=== PATIENT | female | born 1970 | race African-American/Black ===

== ENCOUNTER 2020-07-12 21:07 | Inpatient (IN) | payer BC ==
[2020-07-12] MEDS ORDERED: Dextrose 50% Abboject 50 ML SYRINGE SLOW IVP PRN (23:03)
[2020-07-12] MEDS ORDERED: Dextrose 5% in Water 1,000 ML IV PRN (23:03)
[2020-07-12] MEDS ORDERED: Ondansetron PF 4 MG/2 ML Vial IVP PRN (23:05)
[2020-07-12] MEDS ORDERED: HYDROcodone/Acetaminophen 5/325 mg Tablet PO PRN (23:05)
[2020-07-12] MEDS ORDERED: Senokot S 8.6-50 MG TAB PO PRN (23:05)
[2020-07-12] MEDS ORDERED: Ondansetron ODT 4 MG TAB PO PRN (23:05)
[2020-07-13] MEDS: Dexamethasone 4 mg/ml Vial SLOW IVP SCH ×4 (03:24→20:43)
[2020-07-13 03:49] LABS: #Lymphocytes 2.2 thou/uL (1.20-3.40); #Monocytes 0.1 thou/uL (0.11-0.59); #Neutrophils 8.5 thou/uL (1.40-6.50); %Basophils 0.3 % (0.0-1.0); %Eosinophils 0.2 % (0.0-10.0); %Lymphocytes 19.8 % (21.0-51.0); %Monocytes 1.2 % (0.0-10.0); %Neutrophils 78.5 % (42.0-75.0); Hemoglobin 14.7 g/dL (12.0-16.0); Mean Corpuscular HGB CONC 32.5 g/dL (32.0-36.0); Mean Corpuscular Hemoglobin 29.5 pg (27.0-31.0); Mean Corpuscular Volume 90.7 fL (78.0-98.0); Mean Platelet Volume 7.8 fL (7.4-10.4); Platelet Count 325 thou/uL (130-400); RBC Distribution Width 12.3 % (11.5-14.5); Red Blood Cell (RBC) Count 4.98 mill/uL (4.20-5.40); White Blood Cell (WBC) Count 10.9 thou/uL (4.8-10.8)
[2020-07-13 04:06] LABS: Anion Gap 17 mmol/L (10-20); BUN (Urea Nitrogen) 11 mg/dL (9.8-20.1); Calc. Creatinine Clearance 137 mL/min (70-130); Calcium 9.5 mg/dL (7.8-10.44); Carbon Dioxide 21 mmol/L (22-29); Chloride 100 mmol/L (98-107); Glucose 424 mg/dL (70-105); Potassium 4.2 mmol/L (3.5-5.1); Sodium 134 mmol/L (136-145)
[2020-07-13] MEDS ORDERED: NPH, Human Insulin Isophane 300 UNIT/3 ML VIAL SC SCH (04:30)
[2020-07-13] MEDS: hydrALAZINE 20 MG/ML VIAL SLOW IVP PRN (04:37)
[2020-07-13 05:22] LABS: SARS-CoV-2 PCR by NAA Not Detected (NotDetected)
[2020-07-13] MEDS: Levothyroxine 175 MCG TAB PO SCH (06:08)
[2020-07-13] MEDS ORDERED: Lorazepam 2 MG/ML VIAL SLOW IVP PRN (07:18)
[2020-07-13] MEDS ORDERED: Famotidine 20 MG TAB PO SCH (09:00)
[2020-07-13] MEDS ORDERED: Famotidine/PF 20 mg/2ml Vial SLOW IVP SCH (09:00)
[2020-07-13] MEDS: Pantoprazole 40 MG VIAL IVP SCH (09:10)
[2020-07-13] MEDS: HumaLOG 300 UNITS/3 ML VIAL SC PRN ×2 (12:11→17:45)
[2020-07-13] MEDS ORDERED: Iopamidol-370 76% 500 ML 1 ML ONE (12:51)
[2020-07-13] MEDS ORDERED: Iopamidol 370 76% 50 ML VIAL FS ONE (12:51)
[2020-07-13] MEDS ORDERED: Magnevist 469MG/ML 20 ML VIAL ONE (13:10)
[2020-07-13] MEDS: Lantus 1000 UNITS/10 ML VIAL SC SCH (20:53)
[2020-07-14] MEDS: Dexamethasone 4 mg/ml Vial SLOW IVP SCH ×4 (02:57→20:36)
[2020-07-14] MEDS: Levothyroxine 175 MCG TAB PO SCH (06:24)
[2020-07-14] MEDS: HumaLOG 300 UNITS/3 ML VIAL SC PRN ×3 (06:36→18:27)
[2020-07-14] MEDS: Pantoprazole 40 MG VIAL IVP SCH (09:28)
[2020-07-14] MEDS: HumaLOG 300 UNITS/3 ML VIAL SC SCH ×2 (15:33→20:37)
[2020-07-14] MEDS: Lantus 1000 UNITS/10 ML VIAL SC SCH (20:37)
[2020-07-15] MEDS: Dexamethasone 4 mg/ml Vial SLOW IVP SCH ×4 (02:13→20:24)
[2020-07-15] MEDS: HumaLOG 300 UNITS/3 ML VIAL SC PRN ×4 (02:14→17:01)
[2020-07-15 05:27] LABS: #Lymphocytes 2.4 thou/uL (1.20-3.40); #Monocytes 0.4 thou/uL (0.11-0.59); #Neutrophils 9.7 thou/uL (1.40-6.50); %Basophils 0.4 % (0.0-1.0); %Eosinophils 0.2 % (0.0-10.0); %Lymphocytes 18.8 % (21.0-51.0); %Monocytes 3.3 % (0.0-10.0); %Neutrophils 77.3 % (42.0-75.0); Hemoglobin 14.6 g/dL (12.0-16.0); Mean Corpuscular HGB CONC 32.6 g/dL (32.0-36.0); Mean Corpuscular Hemoglobin 29.8 pg (27.0-31.0); Mean Corpuscular Volume 91.4 fL (78.0-98.0); Mean Platelet Volume 7.8 fL (7.4-10.4); Platelet Count 336 thou/uL (130-400); RBC Distribution Width 12.5 % (11.5-14.5); Red Blood Cell (RBC) Count 4.89 mill/uL (4.20-5.40); White Blood Cell (WBC) Count 12.5 thou/uL (4.8-10.8)
[2020-07-15 05:44] LABS: Anion Gap 13 mmol/L (10-20); BUN (Urea Nitrogen) 15 mg/dL (9.8-20.1); Calc. Creatinine Clearance 129 mL/min (70-130); Calcium 9.1 mg/dL (7.8-10.44); Carbon Dioxide 25 mmol/L (22-29); Cardiac Risk 6.4 (Less than 4.5); Chloride 99 mmol/L (98-107); Cholesterol 314 mg/dl (< 200 Desired); Glucose 308 mg/dL (70-105); HDL Cholesterol 49 mg/dL (>60 Neg Risk); LDL Cholesterol, Calculated 240 mg/dL; Sodium 133 mmol/L (136-145); Triglycerides 126 mg/dL (Less than 150)
[2020-07-15] MEDS: Levothyroxine 175 MCG TAB PO SCH (06:19)
[2020-07-15] MEDS: HumaLOG 300 UNITS/3 ML VIAL SC SCH ×3 (09:28→20:24)
[2020-07-15] MEDS: Pantoprazole 40 MG VIAL IVP SCH (09:29)
[2020-07-15] MEDS: Lantus 1000 UNITS/10 ML VIAL SC SCH (20:25)
[2020-07-16] MEDS: HumaLOG 300 UNITS/3 ML VIAL SC PRN ×4 (00:04→18:51)
[2020-07-16] MEDS: Dexamethasone 4 mg/ml Vial SLOW IVP SCH ×2 (01:16→09:45)
[2020-07-16 05:02] LABS: #Lymphocytes 2.8 thou/uL (1.20-3.40); #Monocytes 0.6 thou/uL (0.11-0.59); #Neutrophils 9.7 thou/uL (1.40-6.50); %Basophils 0.1 % (0.0-1.0); %Eosinophils 0.2 % (0.0-10.0); %Lymphocytes 21.3 % (21.0-51.0); %Monocytes 4.9 % (0.0-10.0); %Neutrophils 73.5 % (42.0-75.0); Mean Corpuscular Hemoglobin 30.3 pg (27.0-31.0); Mean Corpuscular Volume 91.8 fL (78.0-98.0); Mean Platelet Volume 7.8 fL (7.4-10.4); Platelet Count 364 thou/uL (130-400); RBC Distribution Width 12.5 % (11.5-14.5); Red Blood Cell (RBC) Count 5.27 mill/uL (4.20-5.40); White Blood Cell (WBC) Count 13.1 thou/uL (4.8-10.8)
[2020-07-16 05:16] LABS: Anion Gap 15 mmol/L (10-20); BUN (Urea Nitrogen) 19 mg/dL (9.8-20.1); Calc. Creatinine Clearance 114 mL/min (70-130); Calcium 8.9 mg/dL (7.8-10.44); Carbon Dioxide 24 mmol/L (22-29); Chloride 99 mmol/L (98-107); Glucose 350 mg/dL (70-105); Potassium 4.1 mmol/L (3.5-5.1); Sodium 134 mmol/L (136-145)
[2020-07-16] MEDS: Levothyroxine Sodium 100 MCG TAB PO SCH (05:29)
[2020-07-16] MEDS: HumaLOG 300 UNITS/3 ML VIAL SC SCH ×3 (09:44→20:39)
[2020-07-16] MEDS: Pantoprazole 40 MG VIAL IVP SCH (09:45)
[2020-07-16] MEDS ORDERED: Amlodipine 10 MG TAB PO SCH (18:30)
[2020-07-16] MEDS: Lantus 1000 UNITS/10 ML VIAL SC SCH (20:39)
[2020-07-17 05:39] LABS: #Basophils 0.2 thou/uL (0.0-0.2); #Lymphocytes 5.7 thou/uL (1.20-3.40); %Basophils 1.3 % (0.0-1.0); %Eosinophils 0.2 % (0.0-10.0); %Lymphocytes 44.4 % (21.0-51.0); %Monocytes 7.4 % (0.0-10.0); %Neutrophils 46.7 % (42.0-75.0); Hemoglobin 14.2 g/dL (12.0-16.0); Mean Corpuscular HGB CONC 31.6 g/dL (32.0-36.0); Mean Corpuscular Volume 91.7 fL (78.0-98.0); Mean Platelet Volume 7.6 fL (7.4-10.4); Platelet Count 321 thou/uL (130-400); RBC Distribution Width 12.4 % (11.5-14.5); White Blood Cell (WBC) Count 12.9 thou/uL (4.8-10.8)
[2020-07-17] MEDS: Levothyroxine Sodium 100 MCG TAB PO SCH (05:47)
[2020-07-17 06:00] LABS: Anion Gap 11 mmol/L (10-20); BUN (Urea Nitrogen) 16 mg/dL (9.8-20.1); Calc. Creatinine Clearance 170 mL/min (70-130); Calcium 8.6 mg/dL (7.8-10.44); Carbon Dioxide 27 mmol/L (22-29); Chloride 101 mmol/L (98-107); Glucose 112 mg/dL (70-105); Potassium 3.3 mmol/L (3.5-5.1); Sodium 136 mmol/L (136-145)
[2020-07-17] MEDS: Amlodipine 10 MG TAB PO SCH (09:17)
[2020-07-17] MEDS: Pantoprazole 40 MG VIAL IVP SCH (09:18)
[2020-07-17] MEDS: HumaLOG 300 UNITS/3 ML VIAL SC SCH ×4 (09:18→21:48)
[2020-07-17] MEDS: HumaLOG 300 UNITS/3 ML VIAL SC PRN (12:29)
[2020-07-17] MEDS ORDERED: Potassium Chloride 20 MEQ TAB PO SCH (17:15)
[2020-07-17] MEDS: Lantus 1000 UNITS/10 ML VIAL SC SCH (21:20)
[2020-07-18 06:27] LABS: Anion Gap 12 mmol/L (10-20); BUN (Urea Nitrogen) 18 mg/dL (9.8-20.1); Calc. Creatinine Clearance 121 mL/min (70-130); Calcium 8.7 mg/dL (7.8-10.44); Carbon Dioxide 28 mmol/L (22-29); Chloride 99 mmol/L (98-107); Glucose 276 mg/dL (70-105); Potassium 4.1 mmol/L (3.5-5.1); Sodium 135 mmol/L (136-145)
[2020-07-18 06:29] LABS: Hemoglobin 15.6 g/dL (12.0-16.0); Lymphocytes 33 % (21-51); MDiff Complete? YES; Mean Corpuscular HGB CONC 32.2 g/dL (32.0-36.0); Mean Corpuscular Hemoglobin 29.8 pg (27.0-31.0); Mean Corpuscular Volume 92.5 fL (78.0-98.0); Mean Platelet Volume 7.6 fL (7.4-10.4); Monocytes 4 % (0-10); Neutrophil 50 % (42-75); Platelet Count 334 thou/uL (130-400); Platelet Morphology Comment Appears Adequate; RBC Distribution Width 12.6 % (11.5-14.5); Reactive Lymphocytes 14 % (0-10); Red Blood Cell (RBC) Count 5.24 mill/uL (4.20-5.40); White Blood Cell (WBC) Count 19.1 thou/uL (4.8-10.8)
[2020-07-18] MEDS: HumaLOG 300 UNITS/3 ML VIAL SC SCH ×3 (06:50→21:34)
[2020-07-18] MEDS: Levothyroxine Sodium 100 MCG TAB PO SCH (06:52)
[2020-07-18] MEDS: Amlodipine 10 MG TAB PO SCH (06:52)
[2020-07-18] MEDS: CEFAZOLIN 2 GM in Premix Bag 1 BAG IVPB SCH ×3 (06:53→21:34)
[2020-07-18] MEDS: Pantoprazole 40 MG VIAL IVP SCH (08:27)
[2020-07-18] MEDS ORDERED: Lidocaine 0.5%/Epinephrine 1:200,000 50 ml Vial ONE (11:24)
[2020-07-18] MEDS ORDERED: Bacitracin Zinc Ointment 30 gm TUBE ONE (11:24)
[2020-07-18] MEDS ORDERED: Fentanyl 100 MCG/2 ML VIAL ONE ×2 (11:27→12:49)
[2020-07-18] MEDS ORDERED: Dexmedetomidine 200 MCG/2 ML VIAL ONE (11:27)
[2020-07-18] MEDS ORDERED: PHENYLEPHRINE-NS 100 MCG/ML 10 ML SYRINGE ONE (12:06)
[2020-07-18] MEDS ORDERED: Vecuronium 10 MG VIAL ONE (12:06)
[2020-07-18] MEDS ORDERED: Rocuronium Bromide 10 MG/ML (10ML VIAL) ONE (12:06)
[2020-07-18] MEDS ORDERED: Ondansetron PF 4 MG/2 ML Vial ONE (12:06)
[2020-07-18] MEDS ORDERED: ePHEDrine Sulfate 50 MG/10 ML VIAL ONE (12:06)
[2020-07-18] MEDS ORDERED: Lidocaine 1% PF 5 ML VIAL ONE (12:06)
[2020-07-18] MEDS ORDERED: PROPOFOL 200 MG/20 ML VIAL ONE (12:06)
[2020-07-18] MEDS ORDERED: SUGAMMADEX SODIUM 200 MG/2 ML VIAL ONE (13:54)
[2020-07-18] MEDS ORDERED: niCARdipine 25 MG in Sodium Chloride 0.9% 250 ML 240 ML IVPB SCH (14:30)
[2020-07-18] MEDS ORDERED: Meperidine HCl/PF 25 MG/ML VIAL SLOW IVP PRN (14:36)
[2020-07-18] MEDS ORDERED: Promethazine HCl 25 MG/ML VIAL SLOW IVP PRN (14:36)
[2020-07-18] MEDS ORDERED: Ondansetron HCl/PF 4 MG/2 ML Vial IVP PRN (14:36)
[2020-07-18] MEDS ORDERED: HYDROmorphone 2 MG/ML VIAL SLOW IVP PRN (14:36)
[2020-07-18] MEDS: hydrALAZINE 20 MG/ML VIAL SLOW IVP PRN (16:00)
[2020-07-18] MEDS: HYDROcodone/Acetaminophen 5/325 mg Tablet PO PRN (16:06)
[2020-07-18] MEDS: Sodium Chloride 0.9% 1,000 ML IV SCH (17:42)
[2020-07-18] MEDS: levETIRAcetam in NS 500 MG in Premix Bag 1 BAG IVPB SCH (21:33)
[2020-07-18] MEDS: Lantus 1000 UNITS/10 ML VIAL SC SCH (21:35)
[2020-07-18] MEDS: HumaLOG 300 UNITS/3 ML VIAL SC PRN (21:37)
[2020-07-19] MEDS: Sodium Chloride 0.9% 1,000 ML IV SCH ×2 (02:14→15:20)
[2020-07-19] MEDS: Acetaminophen/Codeine 30-300mg Tablet PO PRN (04:33)
[2020-07-19 04:36] LABS: #Basophils 0.2 thou/uL (0.0-0.2); #Lymphocytes 3.2 thou/uL (1.20-3.40); #Monocytes 1.4 thou/uL (0.11-0.59); %Basophils 0.9 % (0.0-1.0); %Eosinophils 0.2 % (0.0-10.0); %Lymphocytes 16.3 % (21.0-51.0); %Monocytes 6.8 % (0.0-10.0); %Neutrophils 75.8 % (42.0-75.0); Hemoglobin 13.2 g/dL (12.0-16.0); Mean Corpuscular HGB CONC 32.6 g/dL (32.0-36.0); Mean Platelet Volume 7.8 fL (7.4-10.4); Platelet Count 265 thou/uL (130-400); RBC Distribution Width 12.6 % (11.5-14.5); White Blood Cell (WBC) Count 19.8 thou/uL (4.8-10.8)
[2020-07-19 04:59] LABS: Anion Gap 13 mmol/L (10-20); BUN (Urea Nitrogen) 10 mg/dL (9.8-20.1); Calc. Creatinine Clearance 159 mL/min (70-130); Calcium 8.2 mg/dL (7.8-10.44); Carbon Dioxide 24 mmol/L (22-29); Chloride 100 mmol/L (98-107); Glucose 257 mg/dL (70-105); Potassium 3.8 mmol/L (3.5-5.1); Sodium 133 mmol/L (136-145)
[2020-07-19] MEDS: HumaLOG 300 UNITS/3 ML VIAL SC PRN ×4 (05:20→21:15)
[2020-07-19] MEDS: Levothyroxine Sodium 100 MCG TAB PO SCH (06:27)
[2020-07-19] MEDS: levETIRAcetam in NS 500 MG in Premix Bag 1 BAG IVPB SCH ×2 (08:48→20:35)
[2020-07-19] MEDS: Acetaminophen 325 MG TAB PO PRN ×2 (08:49→20:38)
[2020-07-19] MEDS: Amlodipine 10 MG TAB PO SCH (08:49)
[2020-07-19] MEDS: Pantoprazole 40 MG VIAL IVP SCH (08:51)
[2020-07-19] MEDS: HumaLOG 300 UNITS/3 ML VIAL SC SCH ×3 (08:52→20:32)
[2020-07-19] MEDS: hydrALAZINE 20 MG/ML VIAL SLOW IVP PRN ×4 (14:13→21:05)
[2020-07-19] MEDS ORDERED: Labetalol HCl 100 MG/20 ML VIAL SLOW IVP PRN (19:49)
[2020-07-19] MEDS: Lantus 1000 UNITS/10 ML VIAL SC SCH (20:33)
[2020-07-20] MEDS ORDERED: Labetalol HCl 100 MG/20 ML VIAL SLOW IVP PRN (05:16)
[2020-07-20] MEDS ORDERED: Labetalol HCl 100 MG/20 ML VIAL ONE (05:33)
[2020-07-20 06:01] LABS: #Eosinphils 0.1 thou/uL (0.0-0.7); #Lymphocytes 3.8 thou/uL (1.20-3.40); #Monocytes 1.5 thou/uL (0.11-0.59); #Neutrophils 12.6 thou/uL (1.40-6.50); %Basophils 0.2 % (0.0-1.0); %Eosinophils 0.4 % (0.0-10.0); %Lymphocytes 21.2 % (21.0-51.0); %Monocytes 8.4 % (0.0-10.0); %Neutrophils 69.8 % (42.0-75.0); Hemoglobin 13.4 g/dL (12.0-16.0); Mean Corpuscular HGB CONC 31.6 g/dL (32.0-36.0); Mean Corpuscular Hemoglobin 29.5 pg (27.0-31.0); Mean Corpuscular Volume 93.4 fL (78.0-98.0); Mean Platelet Volume 7.6 fL (7.4-10.4); Platelet Count 274 thou/uL (130-400); RBC Distribution Width 12.9 % (11.5-14.5); Red Blood Cell (RBC) Count 4.55 mill/uL (4.20-5.40); White Blood Cell (WBC) Count 18.1 thou/uL (4.8-10.8)
[2020-07-20] MEDS: Levothyroxine Sodium 100 MCG TAB PO SCH (06:04)
[2020-07-20 06:20] LABS: Anion Gap 13 mmol/L (10-20); BUN (Urea Nitrogen) 8 mg/dL (9.8-20.1); Calc. Creatinine Clearance 160 mL/min (70-130); Calcium 8.7 mg/dL (7.8-10.44); Carbon Dioxide 22 mmol/L (22-29); Chloride 104 mmol/L (98-107); Glucose 239 mg/dL (70-105); Potassium 4.2 mmol/L (3.5-5.1); Sodium 135 mmol/L (136-145)
[2020-07-20] MEDS: Sodium Chloride 0.9% 1,000 ML IV SCH (06:25)
[2020-07-20] MEDS ORDERED: Labetalol HCl 100 MG/20 ML VIAL SLOW IVP SCH (06:45)
[2020-07-20] MEDS: Amlodipine 10 MG TAB PO SCH (08:22)
[2020-07-20] MEDS: HumaLOG 300 UNITS/3 ML VIAL SC SCH (08:23)
[2020-07-20] MEDS: levETIRAcetam in NS 500 MG in Premix Bag 1 BAG IVPB SCH (08:23)
[2020-07-20] MEDS ORDERED: levETIRAcetam in NS 1,000 MG in Premix Bag 1 BAG IVPB SCH (11:30)
[2020-07-20] MEDS ORDERED: Losartan 25 MG TAB PO SCH (12:15)
[2020-07-20] MEDS: Morphine 2 MG/ML VIAL SLOW IVP PRN (12:17)
[2020-07-20] MEDS: HumaLOG 300 UNITS/3 ML VIAL SC PRN (16:57)
[2020-07-20] MEDS: Lantus 1000 UNITS/10 ML VIAL SC SCH (20:34)
[2020-07-20] MEDS: levETIRAcetam 500 mg/5 ml Oral Solution PO SCH (20:34)
[2020-07-20] MEDS ORDERED: levETIRAcetam 500 MG TAB PO SCH (21:00)
[2020-07-21] MEDS: Sodium Chloride 0.9% 1,000 ML IV SCH ×2 (00:16→11:26)
[2020-07-21 05:32] LABS: #Eosinphils 0.1 thou/uL (0.0-0.7); #Lymphocytes 3.5 thou/uL (1.20-3.40); #Monocytes 1.4 thou/uL (0.11-0.59); #Neutrophils 10.7 thou/uL (1.40-6.50); %Eosinophils 0.6 % (0.0-10.0); %Lymphocytes 22.5 % (21.0-51.0); %Monocytes 8.8 % (0.0-10.0); %Neutrophils 68.1 % (42.0-75.0); Hemoglobin 12.4 g/dL (12.0-16.0); Mean Corpuscular HGB CONC 33.1 g/dL (32.0-36.0); Mean Corpuscular Hemoglobin 30.9 pg (27.0-31.0); Mean Corpuscular Volume 93.3 fL (78.0-98.0); Mean Platelet Volume 7.6 fL (7.4-10.4); Platelet Count 251 thou/uL (130-400); RBC Distribution Width 12.9 % (11.5-14.5); Red Blood Cell (RBC) Count 4.02 mill/uL (4.20-5.40); White Blood Cell (WBC) Count 15.7 thou/uL (4.8-10.8)
[2020-07-21] MEDS: Acetaminophen 325 MG TAB PO PRN ×3 (05:40→20:44)
[2020-07-21] MEDS: Levothyroxine Sodium 100 MCG TAB PO SCH (05:41)
[2020-07-21 05:51] LABS: Anion Gap 13 mmol/L (10-20); BUN (Urea Nitrogen) 11 mg/dL (9.8-20.1); Calc. Creatinine Clearance 159 mL/min (70-130); Calcium 8.3 mg/dL (7.8-10.44); Carbon Dioxide 25 mmol/L (22-29); Chloride 105 mmol/L (98-107); Glucose 328 mg/dL (70-105); Potassium 4.5 mmol/L (3.5-5.1); Sodium 138 mmol/L (136-145)
[2020-07-21] MEDS: HumaLOG 300 UNITS/3 ML VIAL SC PRN ×3 (06:47→17:28)
[2020-07-21] MEDS: Amlodipine 10 MG TAB PO SCH (08:22)
[2020-07-21] MEDS: levETIRAcetam 500 mg/5 ml Oral Solution PO SCH ×2 (08:22→20:44)
[2020-07-21] MEDS: Losartan 25 MG TAB PO SCH (08:22)
[2020-07-21] MEDS ORDERED: Dexamethasone 10 MG/ML VIAL SLOW IVP SCH (08:45)
[2020-07-21] MEDS ORDERED: Scopolamine 1.5 mg/72 hour Patch TD SCH (10:00)
[2020-07-21] MEDS ORDERED: Metoprolol Tartrate 50 MG TAB PO SCH (10:45)
[2020-07-21] MEDS ORDERED: Lacosamide 50 mg Tablet PO SCH ×2 (12:30→21:00)
[2020-07-21] MEDS: Morphine 2 MG/ML VIAL SLOW IVP PRN (15:50)
[2020-07-21] MEDS: HYDROcodone/Acetaminophen 5/325 mg Tablet PO PRN (17:28)
[2020-07-21] MEDS: Lacosamide 50 mg Tablet PO SCH (20:44)
[2020-07-21] MEDS: Lantus 1000 UNITS/10 ML VIAL SC SCH (20:45)
[2020-07-21] MEDS ORDERED: Lorazepam 2 MG/ML VIAL SLOW IVP SCH ×2 (23:15→23:30)
[2020-07-21] MEDS ORDERED: levETIRAcetam 500 mg/5 ml Oral Solution PER TUBE SCH (23:15)
[2020-07-21] MEDS ORDERED: FOSPHENYTOIN SODIUM IVPB SCH (23:45)
[2020-07-21] MEDS ORDERED: SODIUM CHLORIDE 0.9% IVPB SCH (23:45)
[2020-07-22] MEDS: Sodium Chloride 0.9% 1,000 ML IV SCH ×2 (00:18→15:17)
[2020-07-22 05:05] LABS: #Lymphocytes 2.8 thou/uL (1.20-3.40); #Monocytes 1.1 thou/uL (0.11-0.59); %Basophils 0.2 % (0.0-1.0); %Eosinophils 0.2 % (0.0-10.0); %Lymphocytes 16.4 % (21.0-51.0); %Monocytes 6.5 % (0.0-10.0); %Neutrophils 76.7 % (42.0-75.0); Hemoglobin 11.8 g/dL (12.0-16.0); Mean Corpuscular HGB CONC 31.5 g/dL (32.0-36.0); Mean Corpuscular Volume 95.2 fL (78.0-98.0); Mean Platelet Volume 7.8 fL (7.4-10.4); Platelet Count 269 thou/uL (130-400); RBC Distribution Width 12.9 % (11.5-14.5); Red Blood Cell (RBC) Count 3.93 mill/uL (4.20-5.40)
[2020-07-22 05:34] LABS: Anion Gap 13 mmol/L (10-20); BUN (Urea Nitrogen) 16 mg/dL (9.8-20.1); Calc. Creatinine Clearance 156 mL/min (70-130); Calcium 8.4 mg/dL (7.8-10.44); Carbon Dioxide 24 mmol/L (22-29); Chloride 105 mmol/L (98-107); Glucose 373 mg/dL (70-105); Sodium 137 mmol/L (136-145)
[2020-07-22] MEDS: Levothyroxine Sodium 100 MCG TAB PO SCH (05:46)
[2020-07-22] MEDS: HumaLOG 300 UNITS/3 ML VIAL SC PRN ×3 (05:46→17:44)
[2020-07-22] MEDS: Amlodipine 10 MG TAB PO SCH (09:04)
[2020-07-22] MEDS: levETIRAcetam 500 mg/5 ml Oral Solution PO SCH ×2 (09:04→20:40)
[2020-07-22] MEDS: Lacosamide 50 mg Tablet PO SCH ×2 (09:04→20:39)
[2020-07-22] MEDS: Acetaminophen/Codeine 30-300mg Tablet PO PRN ×2 (09:05→12:58)
[2020-07-22] MEDS: Metoprolol Tartrate 100 MG TAB PO SCH ×2 (09:05→20:39)
[2020-07-22] MEDS: Losartan 25 MG TAB PO SCH (09:05)
[2020-07-22 10:56] VITALS: BMI 47.9
[2020-07-22 15:45] VITALS: BP 107/63
[2020-07-22] MEDS ORDERED: Piperacillin/Tazobactam 3.375 GM in Sodium Chloride 0.9% 100 ML IVPB SCH (18:00)
[2020-07-22] MEDS ORDERED: VANCOMYCIN 1.75 GM/350 ML BAG 1.75 GM in Premix Bag 1 BAG IVPB SCH (20:00)
[2020-07-22 20:34] VITALS: TEMP 98.3
[2020-07-22] MEDS: Lantus 1000 UNITS/10 ML VIAL SC SCH (20:36)
== END 2020-07-22 21:07 | disposition short-term general hospital (02) | DRG 25 ==
LOC: ERS 21:07 → 2SE 22:12 → CCU 07-18 10:41 → 2SE 07-19 21:36
PROVIDERS: ADMIT Student in an Organized Health Care Education/Training Program; ATTEND Internal Medicine
PROC: 00B70ZZ Excision of Cerebral Hemisphere, Open Approach (ICD-10-PCS; principal; 2020-07-18)
DX: C71.2 Malignant neoplasm of temporal lobe (principal); G93.6 Cerebral edema; G93.5 Compression of brain; Z68.42 Body mass index [BMI] 45.0-49.9, adult; Z20.822 Contact with and (suspected) exposure to COVID-19; R13.10 Dysphagia, unspecified; E11.22 Type 2 diabetes mellitus with diabetic chronic kidney disease; I12.9 Hypertensive chronic kidney disease with stage 1 through stage 4 chronic kidney disease, or unspecified chronic kidney disease; E89.0 Postprocedural hypothyroidism; I25.10 Atherosclerotic heart disease of native coronary artery without angina pectoris; R94.31 Abnormal electrocardiogram [ECG] [EKG]; E78.5 Hyperlipidemia, unspecified; E66.01 Morbid (severe) obesity due to excess calories; R25.3 Fasciculation; R56.9 Unspecified convulsions; Z80.1 Family history of malignant neoplasm of trachea, bronchus and lung; Z80.41 Family history of malignant neoplasm of ovary; Z79.4 Long term (current) use of insulin; Z79.899 Other long term (current) drug therapy; Z79.890 Hormone replacement therapy; Z90.710 Acquired absence of both cervix and uterus; Z98.51 Tubal ligation status; N18.2 Chronic kidney disease, stage 2 (mild)
CPT/HCPCS: 36415; 36416; 70450; 70553; 71260; 74018; 74177; 80048; 80061; 80185; 84443; 85025; 86850; 86900; 86901; 87040; 87086; 87635; 88184; 88307; 88325; 88331; 88334; 88341; 88342; 93005; 93010; 93306; 95712; 95715; 95819; 95957; 99284; A9579; C1713; C9113; J0360; J0690; J1100; J1815; J1953; J2001; J2060; J2270; J2405; J2543; J2704; J3010; J3370; J3490; Q2009; Q9967; U0003; U0005

== ENCOUNTER 2020-08-15 09:42 | Outpatient (CLI) | payer BC | END 2020-08-15 09:43 | disposition home or self-care (01) | LOC: MRI 09:42 → TBSIIMAG 09:43 | PROVIDERS: ATTEND Radiology Radiation Oncology | DX: C71.2 Malignant neoplasm of temporal lobe (principal); G93.6 Cerebral edema; Z98.890 Other specified postprocedural states | CPT/HCPCS: 70553 ==

== ENCOUNTER 2020-09-15 16:17 | Inpatient (IN) | payer BC ==
[~2020-09-15 16:17] MED LIST: Iopamidol-370 76% 500 ML 1 ML ONE
[2020-09-15 18:02] LABS: #Lymphocytes 2.7 thou/uL (1.20-3.40); #Monocytes 0.6 thou/uL (0.11-0.59); #Neutrophils 4.9 thou/uL (1.40-6.50); %Basophils 0.1 % (0.0-1.0); %Eosinophils 0.4 % (0.0-10.0); %Lymphocytes 32.6 % (21.0-51.0); %Monocytes 6.7 % (0.0-10.0); %Neutrophils 60.2 % (42.0-75.0); Hemoglobin 13.1 g/dL (12.0-16.0); Mean Corpuscular HGB CONC 34.2 g/dL (32.0-36.0); Mean Corpuscular Hemoglobin 31.4 pg (27.0-31.0); Mean Corpuscular Volume 91.8 fL (78.0-98.0); Mean Platelet Volume 7.1 fL (7.4-10.4); Platelet Count 312 thou/uL (130-400); RBC Distribution Width 11.9 % (11.5-14.5); Red Blood Cell (RBC) Count 4.18 mill/uL (4.20-5.40); White Blood Cell (WBC) Count 8.2 thou/uL (4.8-10.8)
[2020-09-15 18:16] LABS: Prothrombin Time 13.2 sec (12.0-14.7)
[2020-09-15 18:19] LABS: PTT 21.8 sec (22.9-36.1)
[2020-09-15 18:23] LABS: ALT (SGPT) 47 U/L (8-55); AST (SGOT) 19 U/L (5-34); Albumin 4.2 g/dL (3.5-5.0); Alkaline Phosphatase 126 U/L (40-110); Anion Gap 16 mmol/L (10-20); BUN (Urea Nitrogen) 6 mg/dL (9.8-20.1); Bilirubin, Total 0.4 mg/dL (0.2-1.2); CK (CPK) 56 U/L (29-168); Calc. Creatinine Clearance 0 mL/min (70-130); Calcium 9.2 mg/dL (7.8-10.44); Carbon Dioxide 24 mmol/L (22-29); Chloride 103 mmol/L (98-107); Globulin 2.9 g/dL (2.4-3.5); Glucose 267 mg/dL (70-105); Lipase 22 U/L (8-78); Potassium 4.4 mmol/L (3.5-5.1); Protein, Total 7.1 g/dL (6.0-8.3); Sodium 139 mmol/L (136-145)
[2020-09-15 18:41] LABS: Bilirubin Negative (Negative); Blood, Urine Negative (Negative); Clarity Clear (Clear); Glucose, Urine (Dipstick) 70 mg/dL (Negative); Ketone, Urine Negative (Negative); Leukocyte Negative Leu/uL (Negative); Nitrite Negative (Negative); Protein, Urine (Dipstick) Negative (Neg-Trace); Specific Gravity, Urine 1.015 (1.002-1.036); Urobilinogen Normal mg/dL (Less than 2); pH, Urine 5.5 (5.0-9.0)
[2020-09-15] MEDS ORDERED: Cefepime 2 GM VIAL ONE (18:46)
[2020-09-15] MEDS ORDERED: Vancomycin 1 GM/200 ML BAG ONE (18:46)
[2020-09-15] MEDS ORDERED: Dexamethasone 10 MG/ML VIAL ONE (19:30)
[2020-09-15] MEDS ORDERED: niCARdipine 20MG In NaCl 20 MG/200 ML BAG ONE (19:37)
[2020-09-15] MEDS ORDERED: manNITOL 20% 500 ML ONE (19:41)
[2020-09-15] MEDS ORDERED: cloNIDine 0.1 MG TAB PO PRN (21:02)
[2020-09-15] MEDS ORDERED: HYDROcodone/Acetaminophen 5/325 mg Tablet PO PRN (21:02)
[2020-09-15] MEDS ORDERED: Acetaminophen 325 MG TAB PO PRN (21:02)
[2020-09-15] MEDS ORDERED: Labetalol HCl 100 MG/20 ML VIAL SLOW IVP PRN (21:02)
[2020-09-15] MEDS ORDERED: HumaLOG 300 UNITS/3 ML VIAL SC PRN ×2 (21:02→21:38)
[2020-09-15] MEDS ORDERED: Promethazine HCl 12.5 MG in Sodium Chloride 0.9% 50 ML IVPB PRN (21:02)
[2020-09-15] MEDS ORDERED: Ondansetron PF 4 MG/2 ML Vial IVP PRN (21:02)
[2020-09-15] MEDS ORDERED: Morphine 2 MG/ML VIAL SLOW IVP PRN (21:02)
[2020-09-15] MEDS ORDERED: Dexamethasone 20 MG/5 ML VIAL SLOW IVP SCH (21:15)
[2020-09-15] MEDS ORDERED: Electrolyte Replacement Protocol 1 EACH FS PRN (21:15)
[2020-09-15 21:27] LABS: SARS-CoV-2 NAA Rapid Test Not Detected (NotDetected)
[2020-09-15] MEDS ORDERED: levETIRAcetam 500 mg/5 ml Oral Solution PO SCH (21:45)
[2020-09-15] MEDS ORDERED: Lantus 1000 UNITS/10 ML VIAL SC SCH (21:45)
[2020-09-15 21:47] VITALS: BMI 44.3
[2020-09-15] MEDS ORDERED: niCARdipine 25 MG in Sodium Chloride 0.9% 250 ML 250 ML IVPB SCH (22:15)
[2020-09-15] MEDS: Dexamethasone 4 mg/ml Vial SLOW IVP SCH (22:32)
[2020-09-15] MEDS: Lacosamide 50 mg Tablet PO SCH (22:36)
[2020-09-15] MEDS: HumaLOG 300 UNITS/3 ML VIAL SC PRN (22:39)
[2020-09-16] MEDS ORDERED: niCARdipine 50 MG in Sodium Chloride 0.9% 250 ML 230 ML IVPB SCH (00:30)
[2020-09-16 03:56] LABS: Anion Gap 13 mmol/L (10-20); BUN (Urea Nitrogen) 7 mg/dL (9.8-20.1); Calc. Creatinine Clearance 145 mL/min (70-130); Carbon Dioxide 22 mmol/L (22-29); Chloride 105 mmol/L (98-107); Glucose 366 mg/dL (70-105); Magnesium 2.4 mg/dL (1.6-2.6); Potassium 4.1 mmol/L (3.5-5.1); Sodium 136 mmol/L (136-145)
[2020-09-16] MEDS ORDERED: Lorazepam 2 MG/ML VIAL SLOW IVP PRN (03:56)
[2020-09-16 04:03] LABS: #Lymphocytes 1.4 thou/uL (1.20-3.40); #Monocytes 0.2 thou/uL (0.11-0.59); #Neutrophils 5.6 thou/uL (1.40-6.50); %Basophils 0.4 % (0.0-1.0); %Eosinophils 0.1 % (0.0-10.0); %Monocytes 2.6 % (0.0-10.0); %Neutrophils 77.9 % (42.0-75.0); Hemoglobin 14.5 g/dL (12.0-16.0); Mean Corpuscular HGB CONC 33.6 g/dL (32.0-36.0); Mean Corpuscular Volume 92.3 fL (78.0-98.0); Mean Platelet Volume 7.3 fL (7.4-10.4); Platelet Count 314 thou/uL (130-400); Red Blood Cell (RBC) Count 4.67 mill/uL (4.20-5.40); White Blood Cell (WBC) Count 7.2 thou/uL (4.8-10.8)
[2020-09-16] MEDS: Dexamethasone 4 mg/ml Vial SLOW IVP SCH ×3 (04:07→16:31)
[2020-09-16] MEDS: HumaLOG 300 UNITS/3 ML VIAL SC PRN ×3 (05:39→18:35)
[2020-09-16] MEDS ORDERED: Levothyroxine 175 MCG TAB PO SCH (06:00)
[2020-09-16] MEDS ORDERED: Prevnar 13-Val Conj/PF 0.5 ML SYRINGE IM ONE (09:00)
[2020-09-16] MEDS ORDERED: levETIRAcetam 500 mg/5 ml Oral Solution PO SCH (09:00)
[2020-09-16] MEDS ORDERED: Lantus 1000 UNITS/10 ML VIAL SC SCH ×2 (09:00→21:00)
[2020-09-16] MEDS: Lacosamide 50 mg Tablet PO SCH (09:02)
[2020-09-16] MEDS ORDERED: Magnevist 469MG/ML 20 ML VIAL ONE (10:47)
[2020-09-16] MEDS ORDERED: Metoprolol Tartrate 100 MG TAB PO SCH ×2 (11:15→21:00)
[2020-09-16] MEDS ORDERED: Polyethylene Glycol 3350 17 GM Packet PO SCH (11:15)
[2020-09-16] MEDS ORDERED: Losartan 25 MG TAB PO SCH (11:15)
[2020-09-16] MEDS ORDERED: Amlodipine 10 MG TAB PO SCH (11:15)
[2020-09-16 16:09] VITALS: BP 146/88; TEMP 98.2
[2020-09-17] MEDS ORDERED: Polyethylene Glycol 3350 17 GM Packet PO SCH (09:00)
[2020-09-17] MEDS ORDERED: Amlodipine 10 MG TAB PO SCH (09:00)
[2020-09-17] MEDS ORDERED: Losartan 25 MG TAB PO SCH (09:00)
== END 2020-09-16 19:59 | disposition home or self-care (01) | DRG 54 ==
LOC: ERS 16:17 → CCU 19:55 → 2SE 09-16 15:29
PROVIDERS: ADMIT Internal Medicine; ATTEND Internal Medicine
DX: C71.2 Malignant neoplasm of temporal lobe (principal); G93.41 Metabolic encephalopathy; G93.6 Cerebral edema; I61.1 Nontraumatic intracerebral hemorrhage in hemisphere, cortical; E11.65 Type 2 diabetes mellitus with hyperglycemia; Z20.822 Contact with and (suspected) exposure to COVID-19; E78.5 Hyperlipidemia, unspecified; E11.22 Type 2 diabetes mellitus with diabetic chronic kidney disease; I12.9 Hypertensive chronic kidney disease with stage 1 through stage 4 chronic kidney disease, or unspecified chronic kidney disease; E89.0 Postprocedural hypothyroidism; N18.31 Chronic kidney disease, stage 3a; Z79.4 Long term (current) use of insulin; Z80.41 Family history of malignant neoplasm of ovary; Z80.1 Family history of malignant neoplasm of trachea, bronchus and lung; Z79.890 Hormone replacement therapy; Z79.899 Other long term (current) drug therapy; Z90.710 Acquired absence of both cervix and uterus; Z98.51 Tubal ligation status
CPT/HCPCS: 36415; 36416; 51702; 70470; 70553; 77386; 80048; 80053; 81003; 82550; 83605; 83690; 83735; 84484; 85025; 85610; 85730; 87040; 87086; 93005; 96365; 96367; 96368; 96375; J0692; J1100; J1815; J3370; J7030; J7050; J7799; U0002; U0005

== ENCOUNTER 2021-02-13 12:57 | Outpatient (CLI) | payer BC | END 2021-02-13 12:58 | disposition home or self-care (01) | LOC: TBSIIMAG 12:57 | PROVIDERS: ATTEND Radiology Radiation Oncology | DX: C71.2 Malignant neoplasm of temporal lobe (principal) | CPT/HCPCS: 70553 ==

== ENCOUNTER 2021-05-17 13:35 | Outpatient (CLI) | payer BC ==
[~2021-05-17 13:35] MED LIST changes: -Iopamidol-370 76% 500 ML 1 ML ONE; +Magnevist 469MG/ML 20 ML VIAL ONE
== END 2021-05-17 13:36 | disposition home or self-care (01) ==
LOC: TBSIIMAG 13:35
PROVIDERS: ATTEND Radiology Radiation Oncology
DX: C71.9 Malignant neoplasm of brain, unspecified (principal); G93.89 Other specified disorders of brain
CPT/HCPCS: 70553; A9579

== ENCOUNTER 2022-07-14 22:36 | Inpatient (IN) | payer BC ==
[2022-07-14 23:19] LABS: Mean Corpuscular HGB CONC 32.8 g/dL (32.0-36.0); Mean Corpuscular Hemoglobin 30.3 pg (27.0-31.0); Mean Corpuscular Volume 92.3 fl (78.0-98.0); Mean Platelet Volume 9.5 fL (7.4-10.4); Platelet Count 142 10x3/uL (130-400); Red Blood Cell (RBC) Count 3.65 mill/uL (4.20-5.40); White Blood Cell (WBC) Count 13.4 10x3/uL (4.8-10.8)
[2022-07-14] MEDS ORDERED: Cefepime 2 GM VIAL ONE (23:41)
[2022-07-14] MEDS ORDERED: VANCOMYCIN 2 GRAM/500 ML BAG 2 GM in Premix Bag 1 BAG IVPB SCH (23:45)
[2022-07-14 23:49] LABS: Anisocytosis SLIGHT = 6-15 cells (100X) (0-5/hpf); Band 31 % (5-11); Burr Cells SLIGHT = 2-5 cells (100X) (0-1/hpf); Large Platelets SLIGHT; Lymphocytes 5 % (21-51); MDiff Complete? YES; Neutrophil 64 % (42-75); Nucleated RBC 1 % (0); Platelet Morphology Comment Appears Adequate; Tear Drops SLIGHT = 2-5 cells (100X) (0-1/hpf)
[2022-07-14 23:52] LABS: Bacteria/HPF 3+ HPF (None Seen); Bilirubin Negative (Negative); Blood, Urine 3+ (Negative); Clarity Extra Turbid (Clear); Glucose, Urine (Dipstick) 500 mg/dL (Negative); Ketone, Urine Negative (Negative); Leukocyte 500 Leu/uL (Negative); Nitrite Negative (Negative); Protein, Urine (Dipstick) 30 mg/dL (Neg-Trace); Specific Gravity, Urine 1.011 (1.002-1.036); Squamous Epithelial 0-3 HPF (0-3); Urobilinogen 3 mg/dL (Less than 2); WBC/HPF Greater than 50 HPF (0-3)
[2022-07-15 00:30] LABS: Albumin 2.5 g/dL (3.5-5.0)
[2022-07-15 00:31] LABS: Chloride 105 mmol/L (98-107); Sodium 143 mmol/L (136-145)
[2022-07-15 00:32] LABS: Globulin 3.2 g/dL (2.4-3.5); Glucose 99 mg/dL (70-105); Protein, Total 5.7 g/dL (6.0-8.3)
[2022-07-15 00:33] LABS: Carbon Dioxide 21 mmol/L (22-29)
[2022-07-15 00:34] LABS: Anion Gap 20 mmol/L (10-20); Bilirubin, Total 0.4 mg/dL (0.2-1.2)
[2022-07-15 00:35] LABS: Alkaline Phosphatase 262 U/L (40-110); Calc. Creatinine Clearance 0 mL/min (70-130); Estimated GFR 114
[2022-07-15 00:36] LABS: BUN (Urea Nitrogen) 15 mg/dL (9.8-20.1); Potassium 2.5 mmol/L (3.5-5.1)
[2022-07-15 00:37] LABS: AST (SGOT) 21 U/L (5-34)
[2022-07-15 00:38] LABS: ALT (SGPT) 22 U/L (8-55); Magnesium 1.8 mg/dL (1.6-2.6)
[2022-07-15] MEDS ORDERED: levETIRAcetam 500 MG/5 ML VIAL ONE (00:39)
[2022-07-15] MEDS ORDERED: Acetaminophen 325 MG TAB PO PRN (02:38)
[2022-07-15] MEDS ORDERED: Acetaminophen 650 MG Suppository PR PRN (02:38)
[2022-07-15] MEDS ORDERED: Ondansetron PF 4 MG/2 ML Vial IVP PRN (02:38)
[2022-07-15] MEDS ORDERED: Ondansetron ODT 4 MG TAB PO PRN (02:38)
[2022-07-15] MEDS ORDERED: Sodium Chloride 0.9% 1,000 ML IV SCH (02:45)
[2022-07-15] MEDS ORDERED: NOREPINEPHRINE 8 MG/250 ML-D5W 250 ML ONE (02:45)
[2022-07-15] MEDS ORDERED: Electrolyte Replacement Protocol 1 EACH FS SCH (03:00)
[2022-07-15] MEDS ORDERED: Potassium Chloride 40 MEQ in Sodium Chloride 0.9% 500 ML IVPB SCH (03:15)
[2022-07-15] MEDS ORDERED: Magnesium 2 GM/50 ML BAG (IN WATER) ONE (03:22)
[2022-07-15] MEDS ORDERED: EPINEPHrine 1 MG/10 ML Abboject SYRINGE ONE (04:43)
[2022-07-15] MEDS ORDERED: Dexamethasone 4 mg/ml Vial SLOW IVP SCH (04:45)
[2022-07-15] MEDS ORDERED: Rocuronium Bromide 10 MG/ML (10ML VIAL) ONE ×2 (04:50→04:55)
[2022-07-15] MEDS ORDERED: Vasopressin 20 UNITS/ML VIAL ONE (04:58)
[2022-07-15] MEDS ORDERED: Sodium Bicarb 50 MEQ/50 ML VIAL ONE (05:00)
[2022-07-15] MEDS ORDERED: Dexamethasone 10 MG/ML VIAL ONE (05:00)
[2022-07-15] MEDS ORDERED: Vasopressin 20 UNITS, Admixture Fee 1 EACH in Sodium Chloride 0.9% 50 ML IV SCH (05:15)
[2022-07-15 05:37] LABS: Actual Bicarbonate (HCO3a) 25.4 mEq/L (22-28); Analyzer IN Cardio ER; Base Excess (BEa) 2.2 mEq/L (-2.0 to +3.0); CO2 Tension 33.8 mmHg (35.0-45.0); Calcium, Ionized (arterial) 0.98 mmol/L (1.12-1.30); Carboxyhemoglobin (COHb) 0.3 gm% (0.0-3.0); Hemoglobin (Hb) 9.4 g/dL (12.0-16.0); pH, Arterial 7.49 (7.35-7.45)
[2022-07-15 06:12] LABS: Potassium - ABG Lab 2.47 mmol/L (3.70-5.30)
[2022-07-15 06:15] LABS: Puncture Site RBA
[2022-07-15 06:19] LABS: INR-International Normal Ratio 1.1; PTT 36.6 sec (22.9-36.1); Prothrombin Time 15.1 sec (12.0-14.7)
[2022-07-15] MEDS ORDERED: Ventilator Sedation Protocol 1 EACH FS ONE (06:19)
[2022-07-15 06:24] LABS: Lactic Acid 4.1 mmol/L (0.5-2.2)
[2022-07-15 06:27] LABS: Anion Gap 18 mmol/L (10-20); BUN (Urea Nitrogen) 15 mg/dL (9.8-20.1); Calc. Creatinine Clearance 0 mL/min (70-130); Calcium 7.3 mg/dL (7.8-10.44); Carbon Dioxide 22 mmol/L (22-29); Chloride 107 mmol/L (98-107); Estimated GFR 116; Glucose 105 mg/dL (70-105); Sodium 144 mmol/L (136-145)
[2022-07-15] MEDS ORDERED: Fentanyl BOLUS 250 ML IVPB PRN (06:30)
[2022-07-15] MEDS ORDERED: Morphine 2 MG/ML VIAL SLOW IVP PRN (06:30)
[2022-07-15] MEDS ORDERED: Propofol BOLUS 1,000 MG/100 ML VIAL IV PRN (06:30)
[2022-07-15] MEDS ORDERED: Propofol 1,000 MG/100 ML VIAL IV PRN (06:30)
[2022-07-15] MEDS ORDERED: DISCONTINUE PREVIOUS NARCOTIC PAIN MEDICATIONS AND BENZODIAZEPINES FS SCH (06:30)
[2022-07-15 06:37] LABS: Potassium 2.5 mmol/L (3.5-5.1)
[2022-07-15] MEDS ORDERED: Dextrose 50% Abboject 50 ML SYRINGE SLOW IVP PRN (06:37)
[2022-07-15] MEDS ORDERED: Dextrose 5% in Water 1,000 ML IV PRN (06:37)
[2022-07-15 06:47] LABS: Anisocytosis SLIGHT = 6-15 cells (100X) (0-5/hpf); Band 24 % (5-11); Hemoglobin 9.7 g/dL (12.0-16.0); Lymphocytes 5 % (21-51); MDiff Complete? YES; Mean Corpuscular HGB CONC 33.1 g/dL (32.0-36.0); Mean Corpuscular Hemoglobin 31.4 pg (27.0-31.0); Mean Corpuscular Volume 94.9 fl (78.0-98.0); Mean Platelet Volume 8.8 fL (7.4-10.4); Monocytes 2 % (0-10); Neutrophil 69 % (42-75); Nucleated RBC 1 % (0); Platelet Count 140 10x3/uL (130-400); Platelet Morphology Comment Appears Adequate; Red Blood Cell (RBC) Count 3.11 mill/uL (4.20-5.40); Tear Drops SLIGHT = 2-5 cells (100X) (0-1/hpf); White Blood Cell (WBC) Count 26.6 10x3/uL (4.8-10.8)
[2022-07-15] MEDS ORDERED: Iopamidol-370 76% 500 ML MDV (1 ML CHARGE) ONE (08:53)
[2022-07-15] MEDS ORDERED: VANCOMYCIN 1.25 GM/250 ML BAG IVPB SCH (09:00)
[2022-07-15] MEDS: levETIRAcetam 500 MG/5 ML VIAL SLOW IVP SCH ×2 (09:28→21:06)
[2022-07-15] MEDS: Potassium Chloride 20 MEQ in Premix Bag 1 BAG IVPB SCH ×4 (09:28→23:07)
[2022-07-15 09:54] LABS: Anion Gap 19 mmol/L (10-20); BUN (Urea Nitrogen) 15 mg/dL (9.8-20.1); Calc. Creatinine Clearance 284 mL/min (70-130); Calcium 7.8 mg/dL (7.8-10.44); Carbon Dioxide 22 mmol/L (22-29); Chloride 107 mmol/L (98-107); Estimated GFR 115; Glucose 113 mg/dL (70-105); Sodium 145 mmol/L (136-145)
[2022-07-15 10:02] LABS: Lactic Acid 5.1 mmol/L (0.5-2.2); Potassium 2.6 mmol/L (3.5-5.1)
[2022-07-15] MEDS ORDERED: Calcium Gluc 4.6 MEQ/10 ML (100 MG/ML) SLOW IVP ONE (10:06)
[2022-07-15] MEDS ORDERED: CALCIUM GLUC 1 GM/NS 50 ML 1 GM in Premix Bag 1 BAG IVPB SCH (10:30)
[2022-07-15] MEDS ORDERED: NOREPINEPHRINE 8 MG/250 ML-D5W 250 ML IVPB SCH (10:30)
[2022-07-15] MEDS: Sodium Chloride 0.9% 1,000 ML IV SCH (11:18)
[2022-07-15] MEDS: Dexamethasone 4 mg/ml Vial SLOW IVP SCH ×3 (12:44→23:07)
[2022-07-15] MEDS: Cefepime 2 GM in Sodium Chloride 0.9% 100 ML IVPB SCH ×2 (12:44→23:07)
[2022-07-15] MEDS ORDERED: Vancomycin 1.5 GRAM/300 ML BAG 1.5 GM in Premix Bag 1 BAG IVPB SCH (13:00)
[2022-07-15] MEDS ORDERED: Lacosamide 200 MG in Sodium Chloride 0.9% 50 ML IVPB SCH (13:00)
[2022-07-15 14:00] LABS: Potassium 3.8 mmol/L (3.5-5.1)
[2022-07-15] MEDS: Lorazepam 2 MG/ML VIAL SLOW IVP PRN (17:37)
[2022-07-15] MEDS: Lacosamide 200 MG in Sodium Chloride 0.9% 50 ML IVPB SCH (21:08)
[2022-07-16] MEDS: Lorazepam 2 MG/ML VIAL SLOW IVP PRN (03:09)
[2022-07-16 04:58] LABS: Hemoglobin 7.6 g/dL (12.0-16.0); Mean Corpuscular HGB CONC 32.2 g/dL (32.0-36.0); Mean Corpuscular Hemoglobin 29.9 pg (27.0-31.0); Mean Corpuscular Volume 92.8 fl (78.0-98.0); Mean Platelet Volume 10.4 fL (7.4-10.4); Platelet Count 88 10x3/uL (130-400); Red Blood Cell (RBC) Count 2.52 mill/uL (4.20-5.40)
[2022-07-16 04:59] LABS: Band 18 % (5-11); Hypochromia SLIGHT = 6-15 cells (100X) (0-5/hpf); Lymphocytes 2 % (21-51); MDiff Complete? YES; Monocytes 4 % (0-10); Neutrophil 76 % (42-75); Platelet Morphology Comment Appears Decreased
[2022-07-16 05:12] LABS: Anion Gap 18 mmol/L (10-20); BUN (Urea Nitrogen) 12 mg/dL (9.8-20.1); Calc. Creatinine Clearance 319 mL/min (70-130); Calcium 7.4 mg/dL (7.8-10.44); Carbon Dioxide 20 mmol/L (22-29); Chloride 112 mmol/L (98-107); Estimated GFR 118; Glucose 152 mg/dL (70-105); Magnesium 2.1 mg/dL (1.6-2.6); Potassium 3.3 mmol/L (3.5-5.1); Sodium 147 mmol/L (136-145)
[2022-07-16] MEDS: Dexamethasone 4 mg/ml Vial SLOW IVP SCH ×4 (05:15→23:14)
[2022-07-16] MEDS: Sodium Chloride 0.9% 1,000 ML IV SCH ×2 (05:16→10:29)
[2022-07-16] MEDS: Potassium Chloride 20 MEQ in Premix Bag 1 BAG IVPB SCH ×2 (05:55→08:14)
[2022-07-16 07:07] LABS: Base Excess (BEa) -0.8 mEq/L (-2.0 to +3.0); Calcium, Ionized (arterial) 1.04 mmol/L (1.12-1.30); Carboxyhemoglobin (COHb) 0.3 gm% (0.0-3.0); Hemoglobin (Hb) 8.4 g/dL (12.0-16.0); O2 Tension (PaO2), arterial 187.7 mmHg (80.0-100.0); Potassium - ABG Lab 3.53 mmol/L (3.70-5.30)
[2022-07-16 07:10] LABS: ALV-art Gradient 142.675 mmHg (0-20); CO2 Tension 20.9 mmHg (35.0-45.0); Puncture Site RRA
[2022-07-16] MEDS: levETIRAcetam 500 MG/5 ML VIAL SLOW IVP SCH ×2 (09:01→20:50)
[2022-07-16] MEDS: Pantoprazole 40 MG VIAL IVP SCH (09:02)
[2022-07-16] MEDS: Lacosamide 200 MG in Sodium Chloride 0.9% 50 ML IVPB SCH ×2 (09:18→20:50)
[2022-07-16] MEDS: Cefepime 2 GM in Sodium Chloride 0.9% 100 ML IVPB SCH ×2 (12:14→23:13)
[2022-07-16] MEDS ORDERED: Polyethylene Glycol 3350 17 GM Packet PO SCH (13:15)
[2022-07-16 15:01] LABS: Potassium 3.7 mmol/L (3.5-5.1)
[2022-07-16] MEDS: Fentanyl CADD 100 ML IV SCH (16:22)
[2022-07-17 05:29] LABS: Anion Gap 23 mmol/L (10-20); BUN (Urea Nitrogen) 12 mg/dL (9.8-20.1); Calc. Creatinine Clearance 299 mL/min (70-130); Carbon Dioxide 15 mmol/L (22-29); Chloride 114 mmol/L (98-107); Estimated GFR 116; Glucose 225 mg/dL (70-105); Potassium 3.7 mmol/L (3.5-5.1); Sodium 148 mmol/L (136-145)
[2022-07-17 05:30] LABS: Anisocytosis MODERATE=16-30 cells (100X) (0-5/hpf); Band 4 % (5-11); Hemoglobin 7.8 g/dL (12.0-16.0); Hypochromia SLIGHT = 6-15 cells (100X) (0-5/hpf); MDiff Complete? YES; Mean Corpuscular HGB CONC 31.7 g/dL (32.0-36.0); Mean Corpuscular Hemoglobin 30.1 pg (27.0-31.0); Mean Corpuscular Volume 94.9 fl (78.0-98.0); Mean Platelet Volume 10.7 fL (7.4-10.4); Monocytes 2 % (0-10); Neutrophil 94 % (42-75); Platelet Count 75 10x3/uL (130-400); Platelet Morphology Comment Appears Decreased; RBC Distribution Width 15.9 % (11.5-14.5); White Blood Cell (WBC) Count 20.3 10x3/uL (4.8-10.8)
[2022-07-17] MEDS: Dexamethasone 4 mg/ml Vial SLOW IVP SCH ×4 (05:30→23:14)
[2022-07-17 09:18] LABS: Base Excess (BEa) -9.3 mEq/L (-2.0 to +3.0); Calcium, Ionized (arterial) 1.19 mmol/L (1.12-1.30); Carboxyhemoglobin (COHb) 0.3 gm% (0.0-3.0); Hemoglobin (Hb) 10.2 g/dL (12.0-16.0); O2 Tension (PaO2), arterial 128.9 mmHg (80.0-100.0); Potassium - ABG Lab 3.39 mmol/L (3.70-5.30); pH, Arterial 7.42 (7.35-7.45)
[2022-07-17 09:20] LABS: Actual Bicarbonate (HCO3a) 13.7 mEq/L (22-28); CO2 Tension 21.8 mmHg (35.0-45.0)
[2022-07-17 09:21] LABS: Puncture Site LRA
[2022-07-17] MEDS ORDERED: Dextrose 5% in Water 1,000 ML IV PRN (09:24)
[2022-07-17] MEDS ORDERED: Dextrose 50% Abboject 50 ML SYRINGE SLOW IVP PRN (09:24)
[2022-07-17] MEDS: Polyethylene Glycol 3350 17 GM Packet PO SCH (10:25)
[2022-07-17] MEDS: levETIRAcetam 500 MG/5 ML VIAL SLOW IVP SCH ×2 (10:33→20:49)
[2022-07-17] MEDS: Pantoprazole 40 MG VIAL IVP SCH (10:33)
[2022-07-17] MEDS: Dextrose 5% in Water 1,000 ML IV SCH ×2 (10:40→22:25)
[2022-07-17] MEDS: Lacosamide 200 MG in Sodium Chloride 0.9% 50 ML IVPB SCH ×2 (11:05→20:49)
[2022-07-17] MEDS: HumaLOG 300 UNITS/3 ML VIAL SC PRN ×3 (12:38→22:23)
[2022-07-17] MEDS: Cefepime 2 GM in Sodium Chloride 0.9% 100 ML IVPB SCH ×2 (12:42→23:13)
[2022-07-18 02:16] LABS: Mean Corpuscular Volume 93.4 fl (78.0-98.0); Mean Platelet Volume 10.9 fL (7.4-10.4); White Blood Cell (WBC) Count 15.5 10x3/uL (4.8-10.8)
[2022-07-18 02:32] LABS: Anion Gap 18 mmol/L (10-20); BUN (Urea Nitrogen) 10 mg/dL (9.8-20.1); Calc. Creatinine Clearance 262 mL/min (70-130); Calcium 8.1 mg/dL (7.8-10.44); Carbon Dioxide 17 mmol/L (22-29); Chloride 113 mmol/L (98-107); Estimated GFR 113; Glucose 269 mg/dL (70-105); Potassium 3.3 mmol/L (3.5-5.1); Sodium 145 mmol/L (136-145)
[2022-07-18 04:06] LABS: Hemoglobin 7.7 g/dL (12.0-16.0); Mean Corpuscular HGB CONC 30.6 g/dL (32.0-36.0); Mean Corpuscular Hemoglobin 28.6 pg (27.0-31.0); Platelet Count 74 10x3/uL (130-400); RBC Distribution Width 15.8 % (11.5-14.5); Red Blood Cell (RBC) Count 2.68 mill/uL (4.20-5.40)
[2022-07-18] MEDS: Dexamethasone 4 mg/ml Vial SLOW IVP SCH ×4 (05:16→23:02)
[2022-07-18] MEDS: HumaLOG 300 UNITS/3 ML VIAL SC PRN ×4 (05:17→21:06)
[2022-07-18] MEDS: Potassium Chloride 20 MEQ in Premix Bag 1 BAG IVPB SCH ×2 (05:42→07:36)
[2022-07-18 08:15] LABS: Actual Bicarbonate (HCO3a) 22.3 mEq/L (22-28); Base Excess (BEa) -1.5 mEq/L (-2.0 to +3.0); CO2 Tension 33.3 mmHg (35.0-45.0); Calcium, Ionized (arterial) 1.15 mmol/L (1.12-1.30); Carboxyhemoglobin (COHb) 0.4 gm% (0.0-3.0); Hemoglobin (Hb) 8.4 g/dL (12.0-16.0); O2 Tension (PaO2), arterial 376.5 mmHg (80.0-100.0); Potassium - ABG Lab 3.75 mmol/L (3.70-5.30); pH, Arterial 7.44 (7.35-7.45)
[2022-07-18 08:16] LABS: ALV-art Gradient -132.925 mmHg (0-20); Puncture Site RRA
[2022-07-18] MEDS: Polyethylene Glycol 3350 17 GM Packet PO SCH (09:00)
[2022-07-18] MEDS: levETIRAcetam 500 MG/5 ML VIAL SLOW IVP SCH ×2 (09:00→20:17)
[2022-07-18] MEDS: Lansoprazole 15 MG/5 ML (BATCHED)UDCUP PER TUBE SCH (09:00)
[2022-07-18] MEDS: Lacosamide 200 MG in Sodium Chloride 0.9% 50 ML IVPB SCH ×2 (10:03→20:25)
[2022-07-18] MEDS: Cefepime 2 GM in Sodium Chloride 0.9% 100 ML IVPB SCH ×2 (11:47→23:02)
[2022-07-18] MEDS: Dextrose 5% in Water 1,000 ML IV SCH (12:54)
[2022-07-18 15:58] LABS: Potassium 3.8 mmol/L (3.5-5.1)
[2022-07-18] MEDS ORDERED: Fentanyl CADD 100 ML ONE (19:01)
[2022-07-18] MEDS: Fentanyl CADD 100 ML IV SCH (19:03)
[2022-07-19] MEDS: Dextrose 5% in Water 1,000 ML IV SCH (01:53)
[2022-07-19] MEDS: HumaLOG 300 UNITS/3 ML VIAL SC PRN ×4 (03:25→22:07)
[2022-07-19] MEDS: Dexamethasone 4 mg/ml Vial SLOW IVP SCH ×4 (06:16→23:35)
[2022-07-19 07:10] LABS: Actual Bicarbonate (HCO3a) 22.9 mEq/L (22-28); Base Excess (BEa) 0.7 mEq/L (-2.0 to +3.0); CO2 Tension 27.8 mmHg (35.0-45.0); Carboxyhemoglobin (COHb) 0.3 gm% (0.0-3.0); Hemoglobin (Hb) 8.9 g/dL (12.0-16.0); O2 Tension (PaO2), arterial 131.1 mmHg (80.0-100.0); Potassium - ABG Lab 3.53 mmol/L (3.70-5.30); pH, Arterial 7.533 (7.35-7.45)
[2022-07-19 07:12] LABS: Puncture Site LRA
[2022-07-19] MEDS: levETIRAcetam 500 MG/5 ML VIAL SLOW IVP SCH ×2 (08:49→20:54)
[2022-07-19] MEDS: Polyethylene Glycol 3350 17 GM Packet PO SCH (08:49)
[2022-07-19 09:12] LABS: Anion Gap 13 mmol/L (10-20); BUN (Urea Nitrogen) 9 mg/dL (9.8-20.1); Calc. Creatinine Clearance 274 mL/min (70-130); Carbon Dioxide 22 mmol/L (22-29); Chloride 108 mmol/L (98-107); Estimated GFR 113; Glucose 385 mg/dL (70-105); Potassium 3.9 mmol/L (3.5-5.1); Sodium 139 mmol/L (136-145)
[2022-07-19] MEDS: Lansoprazole 15 MG/5 ML (BATCHED)UDCUP PER TUBE SCH (09:26)
[2022-07-19] MEDS: Lacosamide 200 MG in Sodium Chloride 0.9% 50 ML IVPB SCH ×2 (10:29→20:54)
[2022-07-19 10:34] LABS: Hemoglobin 9.6 g/dL (12.0-16.0); Mean Corpuscular HGB CONC 30.9 g/dL (32.0-36.0); Mean Corpuscular Hemoglobin 28.2 pg (27.0-31.0); Mean Corpuscular Volume 91.3 fl (78.0-98.0); Mean Platelet Volume 10.3 fL (7.4-10.4); Platelet Count 69 10x3/uL (130-400); RBC Distribution Width 15.7 % (11.5-14.5); White Blood Cell (WBC) Count 11.5 10x3/uL (4.8-10.8)
[2022-07-19 10:35] LABS: #Lymphocytes 1.1 thou/uL (1.20-3.40); #Monocytes 0.3 thou/uL (0.11-0.59); %Eosinophils 0.4 % (0.0-10.0); %Lymphocytes 9.6 % (21.0-51.0); %Monocytes 2.7 % (0.0-10.0); %Neutrophils 87.3 % (42.0-75.0)
[2022-07-19 10:50] LABS: MDiff Complete? YES; Platelet Morphology Comment Appears Decreased; Polychromasia SLIGHT = 2-3 cells (100X) (0-2/hpf)
[2022-07-19] MEDS: Cefepime 2 GM in Sodium Chloride 0.9% 100 ML IVPB SCH ×2 (12:35→23:35)
[2022-07-20] MEDS ORDERED: Furosemide 20 MG/2 ML VIAL SLOW IVP SCH (02:45)
[2022-07-20] MEDS: HumaLOG 300 UNITS/3 ML VIAL SC PRN ×4 (04:11→22:40)
[2022-07-20 04:30] LABS: Mean Corpuscular HGB CONC 33.1 g/dL (32.0-36.0); Mean Corpuscular Hemoglobin 30.1 pg (27.0-31.0); Mean Corpuscular Volume 90.9 fl (78.0-98.0); Platelet Count 80 10x3/uL (130-400); RBC Distribution Width 15.8 % (11.5-14.5); Red Blood Cell (RBC) Count 3.33 mill/uL (4.20-5.40)
[2022-07-20 04:42] LABS: Anion Gap 12 mmol/L (10-20); BUN (Urea Nitrogen) 9 mg/dL (9.8-20.1); Calc. Creatinine Clearance 306 mL/min (70-130); Carbon Dioxide 22 mmol/L (22-29); Chloride 109 mmol/L (98-107); Estimated GFR 116; Glucose 347 mg/dL (70-105); Sodium 139 mmol/L (136-145)
[2022-07-20 05:01] LABS: Band 5 % (5-11); Lymphocytes 8 % (21-51); MDiff Complete? YES; Mean Platelet Volume 7.9 fL (7.4-10.4); Monocytes 3 % (0-10); Neutrophil 84 % (42-75); Platelet Morphology Comment Appears Decreased; Tear Drops SLIGHT = 2-5 cells (100X) (0-1/hpf); White Blood Cell (WBC) Count 9.5 10x3/uL (4.8-10.8)
[2022-07-20] MEDS: Dexamethasone 4 mg/ml Vial SLOW IVP SCH ×3 (05:33→16:31)
[2022-07-20] MEDS: Lorazepam 2 MG/ML VIAL SLOW IVP PRN ×3 (07:09→22:20)
[2022-07-20] MEDS: Lansoprazole 15 MG/5 ML (BATCHED)UDCUP PER TUBE SCH (09:00)
[2022-07-20] MEDS: Polyethylene Glycol 3350 17 GM Packet PO SCH (09:00)
[2022-07-20] MEDS: levETIRAcetam 500 MG/5 ML VIAL SLOW IVP SCH ×2 (09:00→20:39)
[2022-07-20] MEDS ORDERED: Fentanyl CADD 100 ML ONE (09:24)
[2022-07-20] MEDS: Fentanyl CADD 100 ML IV SCH (09:27)
[2022-07-20] MEDS: Lacosamide 200 MG in Sodium Chloride 0.9% 50 ML IVPB SCH ×2 (10:02→20:54)
[2022-07-20] MEDS: Cefepime 2 GM in Sodium Chloride 0.9% 100 ML IVPB SCH (11:00)
[2022-07-20 13:44] VITALS: BMI 47.3
[2022-07-21] MEDS: Cefepime 2 GM in Sodium Chloride 0.9% 100 ML IVPB SCH (00:22)
[2022-07-21] MEDS: Dexamethasone 4 mg/ml Vial SLOW IVP SCH ×2 (00:22→06:18)
[2022-07-21] MEDS ORDERED: Furosemide 20 MG/2 ML VIAL SLOW IVP SCH (00:30)
[2022-07-21] MEDS: Lorazepam 2 MG/ML VIAL SLOW IVP PRN (00:53)
[2022-07-21 02:27] VITALS: BP 128/92
[2022-07-21] MEDS ORDERED: Fentanyl CADD 100 ML ONE (03:37)
[2022-07-21] MEDS: Fentanyl CADD 100 ML IV SCH (03:40)
[2022-07-21] MEDS: HumaLOG 300 UNITS/3 ML VIAL SC PRN (03:58)
[2022-07-21 04:04] LABS: Mean Corpuscular Hemoglobin 30.3 pg (27.0-31.0); Mean Corpuscular Volume 89.2 fl (78.0-98.0); Mean Platelet Volume 11.7 fL (7.4-10.4); Platelet Count 133 10x3/uL (130-400); RBC Distribution Width 16.1 % (11.5-14.5)
[2022-07-21 04:25] LABS: Anion Gap 15 mmol/L (10-20); BUN (Urea Nitrogen) 10 mg/dL (9.8-20.1); Calc. Creatinine Clearance 282 mL/min (70-130); Calcium 8.3 mg/dL (7.8-10.44); Carbon Dioxide 18 mmol/L (22-29); Chloride 109 mmol/L (98-107); Estimated GFR 114; Glucose 306 mg/dL (70-105); Potassium 4.2 mmol/L (3.5-5.1); Sodium 138 mmol/L (136-145)
[2022-07-21 04:26] LABS: Anisocytosis SLIGHT = 6-15 cells (100X) (0-5/hpf); Band 4 % (5-11); Lymphocytes 9 % (21-51); MDiff Complete? YES; Metamyelocyte 3 % (0-0); Monocytes 4 % (0-10); Neutrophil 80 % (42-75); Nucleated RBC 4 % (0); Platelet Morphology Comment Appears Adequate; Polychromasia MODERATE = 3-4 cells (100X) (0-2/hpf); Tear Drops SLIGHT = 2-5 cells (100X) (0-1/hpf); White Blood Cell (WBC) Count 14.5 10x3/uL (4.8-10.8)
[2022-07-21 08:18] VITALS: TEMP 97.8
[2022-07-21] MEDS: Lansoprazole 15 MG/5 ML (BATCHED)UDCUP PER TUBE SCH (08:38)
[2022-07-21] MEDS: levETIRAcetam 500 MG/5 ML VIAL SLOW IVP SCH (08:38)
[2022-07-21] MEDS: Lacosamide 200 MG in Sodium Chloride 0.9% 50 ML IVPB SCH (08:38)
[2022-07-21] MEDS: Polyethylene Glycol 3350 17 GM Packet PO SCH (08:39)
== END 2022-07-21 13:01 | disposition hospice, inpatient (51) | DRG 698 ==
LOC: ERS 22:36 → CCU 07-15 06:26
PROVIDERS: ADMIT Internal Medicine; ATTEND Internal Medicine
PROC: 3E03329 Introduction of Other Anti-infective into Peripheral Vein, Percutaneous Approach (ICD-10-PCS; principal; 2022-07-15)
PROC: 5A1955Z Respiratory Ventilation, Greater than 96 Consecutive Hours (ICD-10-PCS; 2022-07-15)
PROC: 0BH17EZ Insertion of Endotracheal Airway into Trachea, Via Natural or Artificial Opening (ICD-10-PCS; 2022-07-15)
PROC: 3E033XZ Introduction of Vasopressor into Peripheral Vein, Percutaneous Approach (ICD-10-PCS; 2022-07-15)
PROC: 0T2BX0Z Change Drainage Device in Bladder, External Approach (ICD-10-PCS; 2022-07-15)
PROC: 4A133R1 Monitoring of Arterial Saturation, Peripheral, Percutaneous Approach (ICD-10-PCS; 2022-07-15)
PROC: 0D9670Z Drainage of Stomach with Drainage Device, Via Natural or Artificial Opening (ICD-10-PCS; 2022-07-15)
PROC: 05JY3ZZ Inspection of Upper Vein, Percutaneous Approach (ICD-10-PCS; 2022-07-15)
DX: T83.511A Infection and inflammatory reaction due to indwelling urethral catheter, initial encounter (principal); A41.4 Sepsis due to anaerobes; R65.21 Severe sepsis with septic shock; G93.41 Metabolic encephalopathy; G93.6 Cerebral edema; J96.01 Acute respiratory failure with hypoxia; Z68.42 Body mass index [BMI] 45.0-49.9, adult; E87.20 Acidosis, unspecified; G40.209 Localization-related (focal) (partial) symptomatic epilepsy and epileptic syndromes with complex partial seizures, not intractable, without status epilepticus; C71.2 Malignant neoplasm of temporal lobe; D62 Acute posthemorrhagic anemia; E87.0 Hyperosmolality and hypernatremia; Z16.11 Resistance to penicillins; Z66 Do not resuscitate; Z51.5 Encounter for palliative care; N39.0 Urinary tract infection, site not specified; G40.909 Epilepsy, unspecified, not intractable, without status epilepticus; I10 Essential (primary) hypertension; E87.6 Hypokalemia; T83.098A Other mechanical complication of other urinary catheter, initial encounter; R33.8 Other retention of urine; E83.51 Hypocalcemia; E66.01 Morbid (severe) obesity due to excess calories; Y84.6 Urinary catheterization as the cause of abnormal reaction of the patient, or of later complication, without mention of misadventure at the time of the procedure; Z78.1 Physical restraint status; Z79.899 Other long term (current) drug therapy; Z79.01 Long term (current) use of anticoagulants; Z79.4 Long term (current) use of insulin; Z79.890 Hormone replacement therapy; Z98.890 Other specified postprocedural states
CPT/HCPCS: 31500; 36415; 36416; 36556; 36600; 51702; 70450; 71045; 74177; 80048; 80053; 81003; 81015; 82805; 83605; 83735; 84484; 85025; 85610; 85730; 86140; 86850; 86900; 86901; 87040; 87077; 87086; 87149; 87186; 93005; 94002; 94003; 95712; 95816; 95819; 95957; 96365; 96366; 96367; 96368; 96374; 96375; C9113; C9254; J0171; J0613; J0692; J1100; J1650; J1815; J1940; J1953; J2060; J2272; J3010; J3370; J3475; J3480; J3490; J7030; J7050; J7070; Q9967

== ENCOUNTER 2022-07-21 13:19 | Inpatient (IN) | payer OTHER ==
[2022-07-21] MEDS ORDERED: Morphine 10 MG/ML VIAL SLOW IVP PRN (14:02)
[2022-07-21] MEDS ORDERED: Morphine 4 MG/ML VIAL SLOW IVP PRN (14:03)
[2022-07-21] MEDS: Lorazepam 2 MG/ML VIAL SLOW IVP PRN ×6 (14:15→23:50)
[2022-07-21] MEDS ORDERED: Scopolamine 1.5 mg/72 hour Patch TOP SCH ×2 (15:00→23:59)
[2022-07-21 21:38] VITALS: BP 75/55; TEMP 97.3
== END 2022-07-22 00:55 | disposition expired | DRG 951 ==
LOC: CCU 13:19 → MSONC 17:40
PROVIDERS: ADMIT Internal Medicine Nephrology; ATTEND Internal Medicine Nephrology
DX: Z51.5 Encounter for palliative care (principal); A41.9 Sepsis, unspecified organism; R65.21 Severe sepsis with septic shock; J96.00 Acute respiratory failure, unspecified whether with hypoxia or hypercapnia; G93.49 Other encephalopathy; Z66 Do not resuscitate; E87.6 Hypokalemia; G40.909 Epilepsy, unspecified, not intractable, without status epilepticus; I10 Essential (primary) hypertension
CPT/HCPCS: J2060; J2270